=== PATIENT | male | born 1955 | race Caucasian/White ===

== ENCOUNTER 2016-02-21 16:45 | Outpatient (RCR) | payer OTHER ==
[2016-08-21] MEDS ORDERED: MULTI VITAMINS1 TAB PO (10:15)
[2016-08-21] MEDS ORDERED: THE MEDICINE S200 M2 PO (10:16)
[2016-08-21] MEDS ORDERED: ZANTAC 150MG T150 MG PO (10:16)
[2016-08-21] MEDS ORDERED: VOLTAREN GEL 1%1 TU TP (10:17)
[2016-08-21] MEDS ORDERED: NAPROSYN500 MG PO (10:18)
[2016-08-21] MEDS ORDERED: IMITREX100 MG PO (10:18)
[2016-08-21] MEDS ORDERED: NORCO 325 MG-51 TAB PO (10:20)
[2016-08-22] MEDS ORDERED: ROBAXIN 50500 MG/TAB PO (07:37)
[2016-08-22] MEDS ORDERED: FLEXERIL 1010 MG/TAB PO (07:38)
== END 2016-03-29 | disposition home or self-care (01) ==
LOC: WSPT
DX: M25.512 Pain in left shoulder (principal)

== ENCOUNTER 2016-07-24 16:15 | Outpatient (RCR) | payer OTHER ==
[2016-08-21] MEDS ORDERED: MULTI VITAMINS1 TAB PO (10:15)
[2016-08-21] MEDS ORDERED: THE MEDICINE S200 M2 PO (10:16)
[2016-08-21] MEDS ORDERED: ZANTAC 150MG T150 MG PO (10:16)
[2016-08-21] MEDS ORDERED: VOLTAREN GEL 1%1 TU TP (10:17)
[2016-08-21] MEDS ORDERED: NAPROSYN500 MG PO (10:18)
[2016-08-21] MEDS ORDERED: IMITREX100 MG PO (10:18)
[2016-08-21] MEDS ORDERED: NORCO 325 MG-51 TAB PO (10:20)
[2016-08-22] MEDS ORDERED: ROBAXIN 50500 MG/TAB PO (07:37)
[2016-08-22] MEDS ORDERED: FLEXERIL 1010 MG/TAB PO (07:38)
== END 2016-07-30 | disposition still patient (30) ==
LOC: WSPT
DX: M25.512 Pain in left shoulder (principal)
CPT/HCPCS: G0283-GP

== ENCOUNTER 2016-08-16 15:15 | Outpatient (RCR) | payer OTHER ==
[2016-08-21] MEDS ORDERED: MULTI VITAMINS1 TAB PO (10:15)
[2016-08-21] MEDS ORDERED: THE MEDICINE S200 M2 PO (10:16)
[2016-08-21] MEDS ORDERED: ZANTAC 150MG T150 MG PO (10:16)
[2016-08-21] MEDS ORDERED: VOLTAREN GEL 1%1 TU TP (10:17)
[2016-08-21] MEDS ORDERED: IMITREX100 MG PO (10:18)
[2016-08-21] MEDS ORDERED: NAPROSYN500 MG PO (10:18)
[2016-08-21] MEDS ORDERED: NORCO 325 MG-51 TAB PO (10:20)
[2016-08-22] MEDS ORDERED: ROBAXIN 50500 MG/TAB PO (07:37)
[2016-08-22] MEDS ORDERED: FLEXERIL 1010 MG/TAB PO (07:38)
== END 2016-08-17 12:57 | disposition home or self-care (01) ==
LOC: WSPT 15:15
DX: M25.512 Pain in left shoulder (principal)

== ENCOUNTER → 2016-08-23 | Outpatient (CLI) | payer OTHER ==
[~2016-08-23] VITALS: Ht 188 cm; Wt 85.0 kg
[~2016-08-23] MED LIST: FLEXERIL 1010 MG/TAB PO; IMITREX100 MG PO; MULTI VITAMINS1 TAB PO; NAPROSYN500 MG PO; NORCO 325 MG-51 TAB PO; ROBAXIN 50500 MG/TAB PO; THE MEDICINE S200 M2 PO; VOLTAREN GEL 1%1 TU TP; ZANTAC 150MG T150 MG PO
[2016-08-23 10:17] VITALS: BP 127/85; PULSE 90
[2016-08-23 11:54] VITALS: BP 126/83; PULSE 75
== END ==
LOC: COL.RAD 09:44
DX: I89.8 Other specified noninfective disorders of lymphatic vessels and lymph nodes (principal)

== ENCOUNTER → 2016-11-14 | Outpatient (CLI) | payer OTHER | LOC: MHCPAIN 15:07 | DX: G89.29 Other chronic pain (principal); M47.22 Other spondylosis with radiculopathy, cervical region; R51 Headache | CPT/HCPCS: G0463 ==

== ENCOUNTER 2016-12-04 16:00 | Outpatient (RCR) | payer OTHER | END 2016-12-04 17:22 | LOC: WSPT 16:00 | DX: S46.211D Strain of muscle, fascia and tendon of other parts of biceps, right arm, subsequent encounter (principal) | CPT/HCPCS: G0283-GP ==

== ENCOUNTER → 2016-12-27 | Outpatient (CLI) | payer OTHER | LOC: MHCPAIN 14:19 | DX: G89.29 Other chronic pain (principal); M50.123 Cervical disc disorder at C6-C7 level with radiculopathy; R51 Headache | CPT/HCPCS: G0463 ==

== ENCOUNTER → 2017-03-20 | Outpatient (CLI) | payer OTHER | LOC: MHCPAIN 16:05 | DX: G89.29 Other chronic pain (principal); M50.123 Cervical disc disorder at C6-C7 level with radiculopathy; R51 Headache | CPT/HCPCS: G0463 ==

== ENCOUNTER → 2017-05-10 | Outpatient (CLI) | payer OTHER | LOC: MHCPAIN 13:18 | DX: M50.323 Other cervical disc degeneration at C6-C7 level (principal) | CPT/HCPCS: J0461 ==

== ENCOUNTER → 2017-05-17 | Outpatient (CLI) | payer OTHER | LOC: MHCPAIN 15:01 | DX: M50.322 Other cervical disc degeneration at C5-C6 level (principal) | CPT/HCPCS: J2250; J3010 ==

== ENCOUNTER → 2017-05-21 | Outpatient (CLI) | payer OTHER | LOC: MHCPAIN 15:51 | DX: G89.29 Other chronic pain (principal); M50.10 Cervical disc disorder with radiculopathy, unspecified cervical region; R51 Headache | CPT/HCPCS: G0463 ==

== ENCOUNTER → 2017-07-26 | Outpatient (CLI) | payer OTHER | LOC: MHCPAIN 09:18 | DX: M50.322 Other cervical disc degeneration at C5-C6 level (principal) | CPT/HCPCS: J1100; J2250; J3010 ==

== ENCOUNTER → 2017-09-26 | Outpatient (CLI) | payer OTHER | LOC: MHCPAIN 15:05 | DX: G89.29 Other chronic pain (principal); M50.90 Cervical disc disorder, unspecified, unspecified cervical region; M54.81 Occipital neuralgia; R51 Headache | CPT/HCPCS: G0463 ==

== ENCOUNTER 2017-10-11 15:05 | Outpatient (RCR) | payer OTHER | END 2018-01-09 | disposition home or self-care (01) | LOC: WSOH | DX: Z77.21 Contact with and (suspected) exposure to potentially hazardous body fluids (principal); W46.0XXA Contact with hypodermic needle, initial encounter; Y93.E9 Activity, other interior property and clothing maintenance; Y92.214 College as the place of occurrence of the external cause; Y99.0 Civilian activity done for income or pay; Z01.84 Encounter for antibody response examination ==

== ENCOUNTER 2018-05-20 16:00 | Outpatient (RCR) | payer OTHER | END 2018-05-26 | disposition home or self-care (01) | LOC: WSC | DX: Z47.89 Encounter for other orthopedic aftercare (principal); Z79.2 Long term (current) use of antibiotics; Z79.891 Long term (current) use of opiate analgesic; Z79.899 Other long term (current) drug therapy; Z87.891 Personal history of nicotine dependence; Z89.511 Acquired absence of right leg below knee ==

== ENCOUNTER 2018-05-29 08:00 | Outpatient (RCR) | payer OTHER | END 2018-10-17 | LOC: WSC | DX: M75.22 Bicipital tendinitis, left shoulder (principal) ==

== ENCOUNTER → 2018-06-12 | Outpatient (CLI) | payer OTHER | LOC: MHCPAIN 15:06 | DX: G89.29 Other chronic pain (principal); M54.12 Radiculopathy, cervical region; M54.81 Occipital neuralgia; R51 Headache; M47.812 Spondylosis without myelopathy or radiculopathy, cervical region | CPT/HCPCS: G0463 ==

== ENCOUNTER → 2018-10-09 | Outpatient (CLI) | payer OTHER | LOC: MHCPAIN 15:07 | DX: G89.29 Other chronic pain (principal); R51 Headache; M47.812 Spondylosis without myelopathy or radiculopathy, cervical region | CPT/HCPCS: G0463 ==

== ENCOUNTER → 2018-10-17 | Outpatient (CLI) | payer OTHER | LOC: MHCPAIN 10:37 | DX: M47.812 Spondylosis without myelopathy or radiculopathy, cervical region (principal); M54.12 Radiculopathy, cervical region ==

== ENCOUNTER → 2018-10-31 | Outpatient (CLI) | payer OTHER | LOC: MHCPAIN 13:25 | DX: G89.29 Other chronic pain (principal); R51 Headache; M47.812 Spondylosis without myelopathy or radiculopathy, cervical region | CPT/HCPCS: G0463; J1100; J2250; J3010 ==

== ENCOUNTER → 2018-12-31 | Outpatient (CLI) | payer OTHER | LOC: MHCPAIN 15:38 | DX: G89.29 Other chronic pain (principal); R51 Headache; M47.812 Spondylosis without myelopathy or radiculopathy, cervical region | CPT/HCPCS: G0463 ==

== ENCOUNTER → 2019-08-13 | Outpatient (CLI) | payer OTHER | LOC: MHCPAIN 15:50 | DX: M47.812 Spondylosis without myelopathy or radiculopathy, cervical region (principal); M54.2 Cervicalgia; R51 Headache; G89.29 Other chronic pain | CPT/HCPCS: G0463 ==

== ENCOUNTER → 2019-09-04 | Outpatient (CLI) | payer OTHER | LOC: MHCPAIN 15:17 | DX: M47.812 Spondylosis without myelopathy or radiculopathy, cervical region (principal); M54.2 Cervicalgia | CPT/HCPCS: J2250; J3010; J7030 ==

== ENCOUNTER → 2019-09-25 | Outpatient (CLI) | payer OTHER | LOC: MHCPAIN 14:18 | DX: M47.812 Spondylosis without myelopathy or radiculopathy, cervical region (principal); M54.2 Cervicalgia; R51 Headache; G89.29 Other chronic pain | CPT/HCPCS: G0463; J2250; J3010 ==

== ENCOUNTER → 2019-10-28 | Outpatient (CLI) | payer OTHER | LOC: MHCPAIN 15:33 | DX: M47.812 Spondylosis without myelopathy or radiculopathy, cervical region (principal); M54.2 Cervicalgia; M54.81 Occipital neuralgia; G89.29 Other chronic pain; M54.12 Radiculopathy, cervical region | CPT/HCPCS: G0463 ==

== ENCOUNTER 2020-05-03 12:57 | Emergency (ER) | payer OTHER ==
[~2020-05-03] VITALS: Ht 188 cm; Wt 81.8 kg
[2020-05-03] MEDS ORDERED: VALIUM 5MG T5 MG/TAB PO (13:43)
[2020-05-03 13:56] VITALS: BP 132/83; PULSE 85; TEMP 98
[2020-05-04] MEDS ORDERED: PERCOCET 325 MG1 TA2 PO (14:49)
== END 2020-05-03 13:56 | disposition home or self-care (01) ==
LOC: COL.ER 12:57
DX: M43.6 Torticollis (principal); Z88.0 Allergy status to penicillin; Z88.1 Allergy status to other antibiotic agents; Z87.891 Personal history of nicotine dependence

== ENCOUNTER 2020-05-04 13:27 | Emergency (ER) | payer OTHER ==
[~2020-05-04] VITALS: Ht 188 cm; Wt 81.8 kg
[~2020-05-04 13:27] MED LIST changes: +VALIUM 5MG T5 MG/TAB PO
[2020-05-04 13:33] VITALS: TEMP 97.6
[2020-05-04] MEDS ORDERED: PERCOCET 325 MG1 TA2 PO (14:49)
[2020-05-04 15:14] VITALS: BP 138/86; PULSE 78
== END 2020-05-04 15:15 | disposition home or self-care (01) ==
LOC: COL.ER 13:27
DX: S46.819A Strain of other muscles, fascia and tendons at shoulder and upper arm level, unspecified arm, initial encounter (principal); Z88.0 Allergy status to penicillin; Z88.1 Allergy status to other antibiotic agents; Z87.891 Personal history of nicotine dependence; X58.XXXA Exposure to other specified factors, initial encounter
CPT/HCPCS: J1100; J1885

== ENCOUNTER → 2020-08-31 | Outpatient (CLI) | payer OTHER ==
[~2020-08-31] MED LIST changes: +PERCOCET 325 MG1 TA2 PO
== END ==
LOC: MHCPAIN 14:32
DX: M47.812 Spondylosis without myelopathy or radiculopathy, cervical region (principal); M54.2 Cervicalgia; R51.9 Headache, unspecified
CPT/HCPCS: G0463

== ENCOUNTER → 2020-10-07 | Outpatient (CLI) | payer OTHER | LOC: MHCPAIN 13:28 | DX: M47.812 Spondylosis without myelopathy or radiculopathy, cervical region (principal); M54.2 Cervicalgia; R51.9 Headache, unspecified | CPT/HCPCS: G0463; J1100; J2250; J3010 ==

== ENCOUNTER → 2020-12-08 | Outpatient (CLI) | payer OTHER | LOC: MHCPAIN 15:01 | DX: M47.812 Spondylosis without myelopathy or radiculopathy, cervical region (principal); M54.6 Pain in thoracic spine; M54.2 Cervicalgia; M79.18 Myalgia, other site | CPT/HCPCS: G0463; J1040 ==

== ENCOUNTER → 2021-04-28 | Outpatient (CLI) | payer OTHER | LOC: MHCPAIN 11:33 | DX: M47.812 Spondylosis without myelopathy or radiculopathy, cervical region (principal); M54.2 Cervicalgia | CPT/HCPCS: J1040; J2250; J3010 ==

== ENCOUNTER → 2021-06-29 | Outpatient (CLI) | payer OTHER | LOC: MHCPAIN 15:00 | DX: M47.812 Spondylosis without myelopathy or radiculopathy, cervical region (principal); M54.2 Cervicalgia; G89.29 Other chronic pain | CPT/HCPCS: G0463 ==

== ENCOUNTER → 2022-06-08 | Outpatient (CLI) | payer OTHER | LOC: MHCPAIN 14:40 | DX: M47.812 Spondylosis without myelopathy or radiculopathy, cervical region (principal); M54.2 Cervicalgia | CPT/HCPCS: J1100; J2250; J2370; J3010 ==

== ENCOUNTER → 2023-04-04 | Outpatient (CLI) | payer OTHER | LOC: MHCPAIN 12:57 | DX: M47.812 Spondylosis without myelopathy or radiculopathy, cervical region (principal); M48.02 Spinal stenosis, cervical region; G44.86 Cervicogenic headache | CPT/HCPCS: G0463 ==

== ENCOUNTER → 2023-11-28 | Outpatient (CLI) | payer OTHER | LOC: MHCPAIN 11:02 | DX: M25.511 Pain in right shoulder (principal); M54.12 Radiculopathy, cervical region; G44.86 Cervicogenic headache; M47.812 Spondylosis without myelopathy or radiculopathy, cervical region; M48.02 Spinal stenosis, cervical region | CPT/HCPCS: G0463 ==